=== PATIENT | female | born 1950 | race Caucasian/White ===

== ENCOUNTER 2024-02-10 05:52 | Emergency (ER) | payer OTHER, MEDICARE ==
[2024-02-10 06:29] VITALS: BMI 21.6
[2024-02-10 08:16] LABS: BASO % 0.5 % (0-2.0); EOS % 2.6 % (0-4.5); HEMATOCRIT 34.9 % (32.4-45.2); HEMOGLOBIN 11.4 GM/dL (10.7-15.3); LYMPH % 14.8 % (8-40); MCH 31.2 pg (25.7-33.7); MCHC 32.8 g/dl (32.0-36.0); MEAN CELL VOLUME 95.1 fl (80-96); MEAN PLT VOLUME 10.2 fl (7.5-11.1); MONO % 10.3 % (3.8-10.2); NEUT % 71.8 % (42.8-82.8); PLATELET COUNT 71 10^3/uL (134-434); RBC 3.66 M/mm3 (3.60-5.2); RDW 15.4 % (11.6-15.6); WHITE BLOOD COUNT 5.9 K/mm3 (4.0-10.0)
[2024-02-10 08:33] LABS: POTASSIUM 4.5 mmol/L (3.5-5.1)
[2024-02-10 08:36] LABS: CALCIUM 9.4 mg/dL (8.5-10.1)
[2024-02-10 08:37] LABS: ALBUMIN 2.2 g/dl (3.4-5.0); BLOOD UREA NITROGEN 21.1 mg/dL (7-18)
[2024-02-10 08:40] LABS: CREATININE 0.5 mg/dL (0.55-1.3)
[2024-02-10 08:41] LABS: BILIRUBIN,TOTAL 1.1 mg/dL (0.2-1); TOT PROT 6.4 g/dl (6.4-8.2)
[2024-02-10 09:04] LABS: INR 1.21 (0.83-1.09)
[2024-02-10 09:07] LABS: ACTIVATED PTT 21.4 SECONDS (25.2-36.5)
[2024-02-10 09:58] LABS: EPI CELLS >36 /uL (0-25.1); HYALINE CASTS 7 /uL (0-3.1); PH,URINE 5.5 (5.0-8.0); URINE APPEARANCE TURBID; URINE BACTERIA 5624 /uL (0-1359); URINE BILIRUBIN NEGATIVE (NEGATIVE); URINE COLOR DK YELLOW; URINE GLUCOSE (UA) NEGATIVE (NEGATIVE); URINE KETONE TRACE (NEGATIVE); URINE LEUK ESTERASE 3+ (NEGATIVE); URINE NITRITE POSITIVE (NEGATIVE); URINE PROTEIN 3+ (NEGATIVE); URINE RBC 3912 /uL (0-23.9); URINE WBC 7873 /uL (0-25.8)
[2024-02-10 11:13] LABS: URINE CRYSTALS NEGATIVE /hpf
[2024-02-10] MEDS: ALBUMIN HUMAN 25% 100 ML VIAL IV SCH (13:10)
[2024-02-10 13:45] VITALS: RESP 19
[2024-02-10] MEDS ORDERED: CEFTRIAXONE 1 GM/50 ML BAG ONE (14:41)
[2024-02-10 14:48] LABS: BF WBC & OTHER NUCLEATED CELLS 242 /mm3
[2024-02-10] MEDS: CEFTRIAXONE 1,000 MG in DEXTROSE 5%-WATER - 50 ML IVPB ONE (14:49)
[2024-02-10 15:05] LABS: BODY FLUID MACROPHAGES 60 %; BODY FLUID MESOTHELIAL 10 %
[2024-02-10 18:44] VITALS: BP 145/77; PULSE 90; TEMP 98.3
[2024-02-11 17:09] LABS: BODY FLUID ALBUMIN 0.7 g/dL (Not Estab.)
== END 2024-02-10 20:04 | disposition home or self-care (01) ==
LOC: JER 05:52
PROC: 3E03329 Introduction of Other Anti-infective into Peripheral Vein, Percutaneous Approach (ICD-10-PCS; principal; 2024-02-10)
PROC: 3E033GC Introduction of Other Therapeutic Substance into Peripheral Vein, Percutaneous Approach (ICD-10-PCS; 2024-02-10)
PROC: 3E033GC Introduction of Other Therapeutic Substance into Peripheral Vein, Percutaneous Approach (ICD-10-PCS; 2024-02-10)
DX: R20.0 Anesthesia of skin (principal); R18.8 Other ascites
CPT/HCPCS: 36415; 76942-TC; 80053; 81003; 82042; 82140; 82150; 82465; 82945; 83615; 83986; 84157; 84478; 85025; 85610; 85730; 87070; 87075; 87086; 87102; 87116; 87186; 87205; 87206; 87210; 88108; 88305-TC; 93005; 93010; 99285-25